=== PATIENT | female | born 1965 | race Caucasian/White ===

== ENCOUNTER → 2021-08-02 10:23 | Outpatient (BNVA) | payer OTHER, SELFPAY | PROVIDERS: PCP Pediatrics; Visit Provider Internal Medicine Rheumatology | DX: R76.8 Other specified abnormal immunological findings in serum (principal); E03.9 Hypothyroidism, unspecified; R20.2 Paresthesia of skin; Z82.61 Family history of arthritis | CPT/HCPCS: 99203 ==

== ENCOUNTER 2021-08-02 11:48 | Outpatient (CLI) | payer OTHER, SELFPAY ==
[2021-08-03 12:03] LABS: COMPLEMENT COMPONENT C3C 164 mg/dL (83-193); COMPLEMENT COMPONENT C4C 28 mg/dL (15-57)
[2021-08-03 16:07] LABS: THYROID PEROXIDASE ANTIBODIES 661 IU/mL (<9)
[2021-08-03 16:11] LABS: CENTROMERE B ANTIBODY <1.0 NEG AI (<1.0 NEG); JO-1 ANTIBODY <1.0 NEG AI (<1.0 NEG); RNP ANTIBODY <1.0 NEG AI (<1.0 NEG); SCL-70 ANTIBODY <1.0 NEG AI (<1.0 NEG); SJOGREN'S ANTIBODY (SS-A) <1.0 NEG AI (<1.0 NEG); SM ANTIBODY <1.0 NEG AI (<1.0 NEG); SS-B <1.0 NEG AI (<1.0 NEG)
[2021-08-03 16:22] LABS: ANA SCREEN, IFA NEGATIVE (NEGATIVE)
[2021-08-04 15:18] LABS: COMPLEMENT, TOTAL (CH50) >60 U/mL (31-60)
[2021-08-10 15:48] LABS: DNA AB (DS) CRITHIDIA,IFA NEGATIVE (NEGATIVE)
== END 2021-08-02 11:49 | disposition home or self-care (01) ==
LOC: LAB 11:56
PROVIDERS: PCP Pediatrics; Visit Provider Internal Medicine Rheumatology
DX: R76.8 Other specified abnormal immunological findings in serum (principal)
CPT/HCPCS: 86160; 86162; 86235; 86255; 86376

== ENCOUNTER 2022-08-16 13:14 | Outpatient (CLI) | payer OTHER, SELFPAY ==
--- NOTE | 2022-08-16 13:23 | CT_ITS ---
WS: [id number] CT NECK TECHNIQUE: Contrast-enhanced CT of the neck with coronal and sagittal reformatted images. CLINICAL INFORMATION: HYPOTHYROIDISM,NONTOXIC SINGLE THYROID NODULE COMPARISON: None. DLP: 246.[address] scans at [facility] use at least one of these dose optimization techniques: automated e xposure control; mA and/or kV adjustment per patient size (includes targeted exams where dose is matc hed to clinical indication); or iterative reconstruction. FINDINGS: Low-attenuation nodule in the LEFT thyroid measuring 7 mm. This can be further evaluated with ultraso und. RIGHT thyroid gland appears normal. No evidence of supraglottic or glottic mass. Tonsillar calci fications. Normal posterior nasopharynx. Normal parapharyngeal fat. Mastoid air cells and paranasal s inuses are well aerated. Partially visualized intracranial contents appear normal. A few prominent bilateral cervical chain lymph nodes not pathologically enlarged and may be reactive. Parotid glands are normal. Normal submandibular glands. Subglottic airway is patent. Lung apices are well aerated.0 CT/CT neck w con* [id number] IMPRESSION: 1. 7 mm low-attenuation LEFT thyroid nodule. This can be followed up with ultr asound. 2. Prominent bilateral cervical and jugulodigastric lymph nodes as well as pos terior triangle, upper limits of normal.. These are most likely reactive. 3. No evidence of supraglottic or glottic mass. 4. Paranasal sinuses and mastoid air cells are well aerated. 5. No other suspicious findings.
[2022-08-16] MEDS: iohexol 350 mg/mL 100 mL Btl IV (14:05)
== END 2022-08-16 13:15 | disposition home or self-care (01) ==
LOC: RAD 13:15
PROVIDERS: PCP Pediatrics; Visit Provider Specialist
DX: E03.9 Hypothyroidism, unspecified (principal); E04.1 Nontoxic single thyroid nodule
CPT/HCPCS: 70491

== ENCOUNTER → 2023-02-10 09:17 | Outpatient (BNVA) | payer OTHER, SELFPAY | PROVIDERS: PCP Pediatrics; Visit Provider Specialist | DX: E04.1 Nontoxic single thyroid nodule (principal) | CPT/HCPCS: 84439; 84443 ==

== ENCOUNTER 2024-04-22 06:00 | Outpatient (RCR) | payer OTHER, SELFPAY | END 2024-05-15 23:59 | disposition home or self-care (01) | LOC: GPT 06:00 | PROVIDERS: Visit Provider Nurse Practitioner Family | DX: M47.22 Other spondylosis with radiculopathy, cervical region (principal) | CPT/HCPCS: 97110; 97140; 97162; 97164 ==